=== PATIENT | female | born 1960 | race Caucasian/White ===

== ENCOUNTER 2017-09-15 23:23 | Emergency (ER) | payer MEDICARE, OTHER ==
[~2017-09-15] VITALS: Ht 172.7 cm; Wt 113.4 kg
[2017-09-15 23:35] VITALS: BP 139/76
[2017-09-16] MEDS ORDERED: TRAM-48 PO
[2017-09-16] MEDS ORDERED: ONDA4TAB10 SL
--- NOTE | 2017-09-16 00:01 | PHYS DOC ---
Past History Past Medical History: Diabetes, Hypertension, CT Past Surgical History: Cholecystectomy, Other Alcohol Use: Rarely Drug Use: None Adult General Chief Complaint Chief Complaint: FINGER INJURY HPI HPI Patient is a 57-year-old female who presents here today complaining of pain to her right thumb at her fingernail. Patient reports that she's been seen multiple times by her primary care physician as well as a distribution technician who prescribed antibiotics and antifungals. Patient reports that the medications and improved her discomfort. Patient reports that there are still some swelling and discharge from her fingernail bed. Patient denies any other symptomatology at this time. She denies any fevers shakes chills nausea vomiting or diarrhea. She is currently on Bactrim but feels nauseous secondary to the pain. Review of systems: Constitutional: Denies fever or chills Eyes: Denies change in visual acuity, redness, or eye pain HENT: Denies nasal congestion or sore throat All other systems were reviewed and found to be within normal limits, except as documented in this note. Physical exam Constitutional: Well developed, well nourished, no acute distress, non-toxic appearance. HENT: Normocephalic, atraumatic, bilateral external ears normal, oropharynx moist, no oral exudates, nose normal. Eyes: PERRLA, EOMI, conjunctiva normal, no discharge. Neck: Normal range of motion, no tenderness, supple, no stridor. Cardiovascular:Heart rate regular rhythm, Lungs & Thorax: Bilateral breath sounds clear to auscultation Abdomen: Bowel sounds normal, soft, no tenderness, no masses, no pulsatile masses. Skin: Warm, dry, no erythema, no rash. Back: No tenderness, no CVA tenderness. Extremities: No tenderness, no cyanosis, no clubbing, ROM intact, no edema. Neurologic: Alert and oriented X 3, normal motor function, normal sensory function, no focal deficits noted. Psychologic: Affect normal, judgement normal, mood normal. Patient's ER physical exam is significant for swelling to her right thumb. Patient has no evidence of the felon, patient's finger nail appears to be an ingrown fingernail. Assessment and plan: 1. 57-year-old female with an ingrown fingernail in her right thumb. Patient is currently taking Bactrim. Patient is a diabetic. Patient will need to continue her antibiotics until she is able to follow-up with her primary care physician. A referral to see a hand specialist. Patient's finger nail will likely need to be removed and treated for an ingrown fingernail. Patient's clinically hemodynamically stable for discharged home at this time. Allergies Allergies Allergies Coded Allergies Type Severity Reaction Last Updated Verified No Known Drug Allergies 01/06/16 No EKG EKG [] Radiology/Procedures Radiology/Procedures [] Course & Med Decision Making Course & Med Decision Making Pertinent Labs and Imaging studies reviewed. (See chart for details) [] Dragon Disclaimer Dragon Disclaimer This electronic medical record was generated, in whole or in part, using a voice recognition dictation system. Departure Departure: Impression: Primary Impression: Ingrown thumbnail of right hand Referrals: SANJANA HENDERSON MD (PCP) Patient Instructions: Ingrown Toenail Additional Instructions: Although he has been given instructions regarding an ingrown toenail, you actually have an ingrown fingernail of her thumb. Instructions should be similar for your toe as it is for your finger. Please continue the antibiotic. You have been given Zofran and we will add Ultram to assist you with the pain that he can continue taking with your current pain medicines. Please follow-up with her doctor as soon as possible to get a referral to see a hand specialist so they can remove her fingernail appropriately. Scripts Ondansetron (ZOFRAN ODT) 4 Mg Tab.rapdis 1 TAB SL Q8HRS for NAUSEA, #15 TAB Prov: FRANKY ESPINOZA MD 09/16/17 Tramadol Hcl (ULTRAM) 50 Mg Tablet 50 MG PO PRN Q6HRS Y for PAIN, #20 TAB Prov: FRANKY ESPINOZA MD 09/16/17 FRANKY ESPINOZA MD Sep 16, 2017 00:01
[2017-09-16] MEDS ORDERED: START PACK - traMADol 1 STARTPACK TABLET PO ONE (00:15)
[2017-09-16] MEDS ORDERED: ONDANSETRON ODT 4 MG TAB.RAPDIS PO ONE (00:15)
[2017-09-16] MEDS ORDERED: traMADol 50 MG TABLET PO ONE (00:15)
[2017-09-16] MEDS ORDERED: ONDANSETRON 4MG ODT 4TABLET STARTPACK. PO ONE (00:15)
[2017-09-16] MEDS ORDERED: METF10002 PO (01:04)
[2017-09-16] MEDS ORDERED: BUPR150T8 PO (01:04)
[2017-09-16] MEDS ORDERED: SULF1TAB24 PO (01:04)
[2017-09-16] MEDS ORDERED: CARV12.5 PO (01:06)
[2017-09-16] MEDS ORDERED: CARV25TA PO (01:06)
[2017-09-16] MEDS ORDERED: CHLO25TA PO (01:06)
[2017-09-16] MEDS ORDERED: GLIM4TAB2 PO (01:06)
[2017-09-16] MEDS ORDERED: HYDR-2766 PO (01:08)
[2017-09-16] MEDS ORDERED: LISI40TA PO (01:08)
[2017-09-16] MEDS ORDERED: SIMV40TA PO (01:09)
[2017-09-16] MEDS ORDERED: LACT1CAP29 PO (01:11)
[2017-09-16] MEDS ORDERED: DOCU-150 PO (01:11)
[2017-09-16] MEDS ORDERED: MELO15TA6 PO (01:11)
[2017-09-16] MEDS ORDERED: ASPI81TA50 PO (01:11)
== END 2017-09-16 00:19 | disposition home or self-care (01) ==
LOC: ER 23:23
DX: L60.0 Ingrowing nail (principal); E11.9 Type 2 diabetes mellitus without complications; I10 Essential (primary) hypertension; I25.2 Old myocardial infarction
CPT/HCPCS: 99284; Q0162